=== PATIENT | male | born 1935 | race Caucasian/White ===

== ENCOUNTER 2022-08-27 13:05 | Outpatient (CLI) | payer OTHER | END 2022-08-27 13:19 | disposition home or self-care (01) | LOC: SONOGRAMA 13:05 | PROVIDERS: ATTEND Urology | DX: R33.9 Retention of urine, unspecified (principal) ==

== ENCOUNTER 2022-10-15 11:11 | Outpatient (CLI) | payer OTHER | END 2022-10-15 11:23 | disposition home or self-care (01) | LOC: MRI 11:11 | PROVIDERS: ATTEND Psychiatry & Neurology Neurology | DX: R41.3 Other amnesia (principal) | CPT/HCPCS: 70551 ==

== ENCOUNTER 2023-05-28 15:38 | Emergency (ER) | payer OTHER ==
[~2023-05-28] VITALS: Ht 177.8 cm; Wt 79.4 kg
[2023-05-28] MEDS ORDERED: BACLOFEN10 MG PO (15:44)
== END 2023-05-28 16:36 | disposition home or self-care (01) ==
LOC: ER 15:39
DX: M54.32 Sciatica, left side (principal)
CPT/HCPCS: 96372; 99282; J1885; J2360